=== PATIENT | female | born 1935 | race Caucasian/White ===

== ENCOUNTER 2018-03-31 06:18 | Outpatient (CLI) | payer MEDICARE, OTHER ==
[~2018-03-31] VITALS: Ht 152.4 cm; Wt 54.4 kg
--- NOTE | ~2018-03-31 | HEMODYNAMI ---
PATIENT:YAMILE OLIVEIRA MEDICAL RECORD: [id number] : 37 LOCATION:[facility] ADMISSION DATE: 03/31/18 Generatedon:03/31/20189:58 Patient name: YAMILE OLIVEIRA Patient #: [id number] SSN : : 1935 Date of study: 03/31/2018 Page: Of Hemodynamic Procedure Report Patient Data Patient Demographics Procedure consent was obtained First Name: YAMILE Gender: Female Last Name: ROXANNE : 1935 Patient #: [id number] Age: 82 year(s) Race: Unknown Additional ID: [id number] Contact details [address]: [address] [place] [address] State: [place] City: [place] Zip code: [address] Past Medical History Allergies Allergen Reaction Date Comments Reported Toradol 03/31/2018 Admission Admission Data Admission Date: 03/31/2018 Admission Time: 6:18 Procedure Procedure Types Cath Procedure Peripheral Cath Diagnostic Procedure Tug Master Peripheral Procedures Procedure Description Procedure Date Procedure Date: 03/31/2018 Procedure Start Time: 9:26 Procedure Staff Name Function Meng Kimble MD Performing Physician Clementina Munoz RT Telemarketing Manager Jovita Joy RN Nurse Emilee Delgado RN Nurse Nilo Lopez RT Scrub Procedure Data Cath Procedure Fluoroscopy Diagnostic fluoroscopy Total fluoroscopy Time: 0.5 time: 0.5 min min Diagnostic fluoroscopy Total fluoroscopy dose: 12 dose: 12 mGy mGy Procedure Medications Medication Administration Route Dosage Heparin Flush Bag added to field 1 bags (1000units/500ml NS) Lidocaine 1% added to field 20 Versed I.V. 1 mg Fentanyl I.V. 50 mcg Fentanyl I.V. 50 mcg Versed I.V. 1 mg Hemodynamics Rest Heart Rate: 72 (bpm) Snapshots Pre Cath Intra NCS Post Cath Vital Signs Time Heart Resp SPO2 etCO2 NIBP (mmHg) Rhythm Pain Sedation Rate (ipm) (%) (mmHg) Status Level (bpm) 9:08:03 73 19 100 32.9 141/74(107) NSR 0 (11) 10(A) , No pain 9:12:39 85 18 34.4 128/52(77) NSR 0 (11) 10(A) , No pain 9:17:38 72 17 100 34.4 Measuring NSR 0 (11) 10(A) , No pain 9:17:52 74 26 100 34.4 117/73(93) NSR 0 (11) 10(A) , No pain 9:22:41 71 19 100 35.2 135/62(103) NSR 0 (11) 10(A) , No pain 9:27:40 74 17 100 35.2 Measuring NSR 0 (11) 10(A) , No pain 9:28:25 75 21 100 17.2 134/61(93) NSR 0 (11) 10(A) , No pain 9:32:35 74 10 99 2.2 125/63(85) NSR 0 (11) 8(A) , No pain 9:36:45 72 11 99 32.2 124/59(84) NSR 0 (11) 8(A) , No pain 9:40:55 73 11 99 38.2 121/59(81) NSR 0 (11) 8(A) , No pain 9:45:42 75 13 100 37.5 132/75(104) NSR 0 (11) 8(A) , No pain 9:49:51 74 13 99 21 126/66(86) NSR 0 (11) 8(A) , No pain 9:54:44 74 11 100 29.9 131/66(87) NSR 0 (11) 8(A) , No pain Medications Time Medication Route Dose Verified Delivered Reason Notes Effect iveness by by 9:27:51 Heparin Flush added 1 Meng Fan used for Bag to bags Lamin Kimble procedure (1000units/500ml field MD [place] NS) 9:28:03 Lidocaine 1% added 20ml Meng Fan used for to vial Lamin Kimble procedure field MD [place] 9:28:15 Versed I.V. 1 mg Meng Hebert for Lamin Delgado RN sedation 9:28:28 Fentanyl I.V. 50 Meng Hebert for mcg Lamin Delgado RN sedation 9:34:57 Fentanyl I.V. 50 Meng Hebert for [facility] [place] Lamin Delgado RN sedation 9:35:05 Versed I.V. 1 mg Meng Hebert for Lamin Delgado RN sedation Procedure Log Time Note 8:24:08 Use device set IR Diagnostic 8:47:53 PLEURX PLEURAL cath system ([id number]) opened to sterile field. 8:47:54 Tegaderm 4 x 4 ([id number]) opened to sterile field. 8:47:55 Sterile Angiographic Pack opened to sterile field. 8:47:56 Bag Decanter (2002S) opened to sterile field. 8:54:50 Time tracking: Regular hours (M-F 7:00 - 5:00) 8:57:14 Plan of Care:Hemodynamics will remain stable., Cardiac rhythm will remain stable., Comfort level will be maintained., Respiratory function will remain adequate., Patient/ family verbilizes understanding of procedure., Procedure tolerated without complication., Recovers from procedure without complications.. 8:57:22 Patient received from Outpatients to IR Alert and oriented. Tansferred to table in Supine position. 8:57:26 Correct patient and procedure confirmed by team. 8:57:30 Signed procedure consent form obtained from patient. 8:57:37 H&P Date Dictated: 03/31/2018 Within 30 days and on chart.. 8:57:39 Pre-procedure instructions explained to patient. 8:57:41 Pre-op teaching completed and patient verbalized understanding. 8:57:44 Family in waiting room. 8:57:50 Patient NPO since Midnight. 8:58:17 Patient allergic to Toradol,lexapro,fosimax, tolectin 9:03:53 Is the patient allergic to Iodine/contrast media? No. 9:03:55 Is patient on blood thinner?No 9:03:58 Patient diabetic? Yes. 9:04:00 If diabetic: On Metformin? No 9:04:03 9:04:03 ----Pre-sedation anethsthesia assessment.---- 9:04:08 Previous problem with sedation/anesthesia? No ? 9:04:17 Snore? No 9:04:19 Sleep apnea? No 9:04:22 Deviated septum? No 9::26 Opens mouth fully? Yes 9:04:35 Sticks out tongue? 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 No ? 9:04:53 9:05:07 IV patent on arrival in right hand with D5/.45%NaCl at KVO. 9:06:17 Baseline sample Acquired. 9:06:24 ECG and BP/O2 sat monitors applied to patient. 9:06:25 Vital chart was started 9::27 Full Disclosure recording started 9:25:59 Physician arrived 9:26:00 --------ALL STOP TIME OUT------ 9:26:01 Final Timeout: patient, procedure, and site verified with staff and physician. All members of the team are in agreement. 9::22 Procedure started. 9::29 Local anesthetic to Chest area with Lidocaine 1% by Meng Kimble MD.INITIAL ACCESS ONLY 9:27:51 Heparin Flush Bag (1000units/500ml NS) 1 bags added to field was administered by Meng Kimble MD; used for procedure; 9:28:03 Lidocaine 1% 20ml vial added to field was administered by Meng Kimble MD; used for procedure; 9:28:15 Versed 1 mg I.V. was administered by Emilee Delgado RN; for sedation; ::28 Fentanyl 50 mcg I.V. was administered by Emilee Delgado RN; for sedation; 9:34:57 Fentanyl 50 mcg I.V. was administered by Emilee Delgado RN; for sedation; 9:35:05 Versed 1 mg I.V. was administered by Emilee Delgado RN; for sedation; 9:53:03 Procedure ended.(Physican Out) 9:53:22 Fluoroscopy time 00.50 minutes. 9:53:25 Fluoroscopy dose: 12 mGy 9:53:25 Flurop Dose total: 12 9:53:29 Procedure and supply charges have been captured, reviewed, submitted and are correct. 9:56:06 Report given to Outpatients. 9:58:51 Vital chart was stopped Device Usage Item Name Manufacture Quantity Catalog Hospital Part Current Minimal Lot# / Number Charge Number Stock Stock Serial# Code PLEURX CareFusion 1 [id number] PLEURAL cath system ([id number]) Tegaderm 4 x 3M 1 [id number] 4 (1626W) Sterile Cardinal 1 [id number] 5 Angiographic Health Pack Bag Decanter Micro[employer] 1 2001S [id number] (2001S) [employer] Signature Audit [place] Stage Time Signature Unsigned Intra-Procedure 03/31/2018 Clementina Munoz 9:58:48 AM RT(R) [place] [id number] [place] [address]
[2018-03-31 06:50] LABS: BASOPHILS 0.5 % (0-2); CALC OSMOLALITY 279 mosm/kg (275-300); CARBON DIOXIDE 28.6 mmol/L (21.0-32.0); CHLORIDE - SERUM 100 mmol/L (98-107); CREATININE - SERUM 0.7 mg/dL (0.6-1.3); EOSINOPHILS 1.7 % (0-7); GLUCOSE 146 mg/dL (74-106); HEMATOCRIT 37.1 % (36.0-48.0); HEMOGLOBIN 12.6 g/dL (12-16); IMMATURE GRANULOCYTES 0.1 % (0-5); LYMPHOCYTES 14.5 % (15-50); MCV 88.3 fL (80.0-100.0); MEAN PLATELET VOLUME 8.9 fL (7.4-10.4); MONOCYTES 6.9 % (2-11); NEUTROPHILS 76.3 % (40-80); PLATELET COUNT 234 10x3/uL (130-400); POTASSIUM - SERUM 3.8 mmol/L (3.5-5.1); RDW 14.1 % (11.5-14.5); SODIUM 138 mmol/L (136-145); UREA NITROGEN 16 mg/dL (7-18); WBC 8.1 10x3/uL (4.8-10.8); eGFR NON AFRICAN AMERICAN 85 mL/min (90-120)
[2018-03-31 06:58] LABS: APTT 25.8 SECONDS (22.8-39.4); INR 0.98 (0.85-1.17); PROTIME 12.6 SECONDS (11.6-15.0)
[2018-03-31 08:16] VITALS: BP 114/65; Ht 152.4 cm; Wt 54.4 kg
== END 2018-03-31 13:15 | disposition home or self-care (01) ==
LOC: D.SP 06:18 → D.RAD 09:00 → D.SP 13:15
PROVIDERS: Radiology Diagnostic Radiology
DX: J91.0 Malignant pleural effusion (principal); C34.90 Malignant neoplasm of unspecified part of unspecified bronchus or lung; Z01.812 Encounter for preprocedural laboratory examination